=== PATIENT | female | born 1975 | race Two or more races ===

== ENCOUNTER → 2023-12-25 10:13 | Outpatient (REF) | payer BC, SELFPAY | LOC: HWRAD 10:13 | PROVIDERS: ATTENDING PHYSICIAN Nurse Practitioner Family | DX: R94.5 Abnormal results of liver function studies (principal); R68.89 Other general symptoms and signs | CPT/HCPCS: 76700 ==

== ENCOUNTER → 2024-02-03 18:43 | Outpatient (REF) | payer BC, SELFPAY | LOC: MRI 3T 18:43 | PROVIDERS: ATTENDING PHYSICIAN Nurse Practitioner Family | DX: R16.0 Hepatomegaly, not elsewhere classified (principal) | CPT/HCPCS: 74183; A9575 ==